=== PATIENT | male | born 1965 | race Caucasian/White ===

== ENCOUNTER → 2021-05-01 | Outpatient (CLI) | payer BC ==
--- NOTE | 2021-05-01 08:30 | Diagnostic Imaging Report ---
INDICATION: Pre-MRI FINDINGS: No opaque orbital foreign body. IMPRESSION: Negative Dictated by: Dictated on workstation # [id number]
--- NOTE | 2021-05-01 11:07 | Diagnostic Imaging Report ---
PROCEDURE: MRI lumbar spine. TECHNIQUE: Multiplanar, multisequence MRI of the lumbar spine was performed without contrast. INDICATION: Chronic low back pain. Lumbar radiculopathy. COMPARISON: Lumbar spine radiographs performed on 06/23/2008. FINDINGS: Alignment of the lumbar spine is normal. There is preservation of normal vertebral body height. There is moderate intervertebral disc space narrowing at the L5-S1 level, which has progressed since prior lumbar spine radiographs performed in 2007. There is increased T1/T2 signal in the inferior L5 endplate and superior S1 endplate, compatible with Modic type II degenerative changes. Marrow signal characteristics are otherwise unremarkable. No evidence of acute fracture. The conus is normally located at the L1-L2 level. There is no abnormal signal in the visualized spinal cord. There is mild disc desiccation at the L4-L5 and L5-S1 levels. Remaining findings are as follows level by level: L1-L2: No significant disc bulge, central canal stenosis or neuroforaminal narrowing. L2-L3: There is a mild right paracentral disc bulge in the foraminal and subarticular zone. There is no significant central canal stenosis. There is mild to moderate right neuroforaminal narrowing. L3-L4: There is a moderate right paracentral disc bulge in the foraminal and subarticular zone. There is no significant central canal stenosis. There is mild to moderate right and mild left neuroforaminal narrowing. There is mild facet hypertrophy. L4-L5: There is a moderate broad-based disc bulge. This, along with mild ligamentum flavum and facet hypertrophy at this level causes mild central canal stenosis. The disc comes in close proximity to but does not appear to contact the exiting L4 nerve roots. There is mild to moderate bilateral neuroforaminal narrowing. L5-S1: There is a mild broad-based disc bulge. There is no significant central canal stenosis. There is mild bilateral neuroforaminal narrowing. Paravertebral soft tissues are within normal limits. Incidental note is made of an exophytic T2 hyperintense lesion projecting medially off the lower pole of the left kidney, presumed to be a cyst. Multiple oval T2 hyperintense lesions are demonstrated in the liver, only seen on the localizer images, also likely cysts. Similar findings were seen on prior chest CT performed in 2007. Incidental note is made of a circumaortic left renal vein, a normal anatomic variant. IMPRESSION: Multilevel degenerative disc disease of the lumbar spine, as detailed above. Findings are most pronounced at the L4-L5 and L5-S1 levels. Dictated by: Dictated on workstation # [id number]
== END ==
LOC: RAD 04-29 08:00
PROVIDERS: ATTEND Orthopaedic Surgery
DX: M51.17 Intervertebral disc disorders with radiculopathy, lumbosacral region (principal); H44.70 Unspecified retained (old) intraocular foreign body, nonmagnetic; M48.07 Spinal stenosis, lumbosacral region; M47.816 Spondylosis without myelopathy or radiculopathy, lumbar region
CPT/HCPCS: 72148

== ENCOUNTER → 2022-04-20 | Outpatient (CLI) | payer BC ==
--- NOTE | 2022-04-20 09:30 | Diagnostic Imaging Report ---
INDICATION: Right foot pain after injury. TECHNIQUE: AP, oblique, and nonweightbearing lateral images of the right foot were obtained. FINDINGS: There is a nondisplaced transverse fracture involving the midshaft of the 2nd metatarsal. No other acute fracture or malalignment is identified. There is no radiopaque foreign object. IMPRESSION: Nondisplaced, transverse, hairline fracture involving the midshaft of the 2nd metatarsal. Dictated by: Dictated on workstation # [id number]
== END ==
LOC: RAD 08:49
PROVIDERS: ATTEND Family Medicine
DX: S92.324A Nondisplaced fracture of second metatarsal bone, right foot, initial encounter for closed fracture (principal); X58.XXXA Exposure to other specified factors, initial encounter
CPT/HCPCS: 73630

== ENCOUNTER → 2022-05-03 | Outpatient (CLI) | payer BC ==
--- NOTE | 2022-05-03 13:59 | Diagnostic Imaging Report ---
Indication: Fall and foot injury. Time of Exam: 1:25 PM 3 views of the right foot were obtained. There is a transversely oriented fracture through the midshaft of the 2nd metatarsal. No significant displacement or angulation is seen. Remaining metatarsals are intact. The phalanges appear intact. Midfoot and hindfoot are unremarkable. Impression: Mid shaft 2nd metatarsal fracture. Dictated by: Dictated on workstation # [id number]
== END ==
LOC: RAD 13:09
PROVIDERS: ATTEND Family Medicine
DX: S92.321A Displaced fracture of second metatarsal bone, right foot, initial encounter for closed fracture (principal)
CPT/HCPCS: 73630

== ENCOUNTER → 2022-06-15 | Outpatient (CLI) | payer BC ==
--- NOTE | 2022-06-15 18:22 | Diagnostic Imaging Report ---
INDICATION: Follow-up fracture EXAMINATION: Right foot 06/15/2022 COMPARISON: 05/03/2022. FINDINGS: Again seen is a fracture of the mid 2nd metatarsal with minimal displacement stable from previous imaging. Surrounding callus formation is noted. There is incomplete healing at this time. The remaining osseous structures unremarkable. IMPRESSION: 1. Healing fracture of the 2nd metatarsal. Dictated by: Dictated on workstation # [id number]
== END ==
LOC: RAD 14:10
PROVIDERS: ATTEND Family Medicine
DX: S92.321D Displaced fracture of second metatarsal bone, right foot, subsequent encounter for fracture with routine healing (principal); X58.XXXD Exposure to other specified factors, subsequent encounter
CPT/HCPCS: 73630